=== PATIENT | female | born 1955 | race Caucasian/White ===

== ENCOUNTER 2022-02-09 12:00 | Emergency (ER) | payer OTHER ==
[~2022-02-09] VITALS: Ht 152.4 cm; Wt 65.9 kg
[2022-02-09] MEDS ORDERED: METO25 PO (12:12)
[2022-02-09] MEDS ORDERED: ASPI81TA87 PO (12:12)
[2022-02-09] MEDS ORDERED: ACETAMINOPHEN 500 MG TABLET PO ONE (13:15)
[2022-02-09 13:27] LABS: COVID AG,FIA SOURCE NASOPHARYNGEAL
[2022-02-09] MEDS ORDERED: BENZ-70 PO (13:41)
[2022-02-09] MEDS ORDERED: PROM118S5 PO (13:41)
[2022-02-09 14:10] VITALS: BP 138/88
[2022-02-09 14:19] LABS: INFLUENZA TYPE A NEGATIVE FOR TYPE A (NEGATIVE); INFLUENZA TYPE B NEGATIVE FOR TYPE B (NEGATIVE)
== END 2022-02-09 14:58 | disposition home or self-care (01) ==
LOC: EMS 12:00
DX: B34.9 Viral infection, unspecified (principal); I10 Essential (primary) hypertension; Z79.899 Other long term (current) drug therapy; Z20.822 Contact with and (suspected) exposure to COVID-19
CPT/HCPCS: 87804; 99283

== ENCOUNTER 2022-10-16 16:42 | Emergency (ER) | payer OTHER ==
[~2022-10-16] VITALS: Ht 144.8 cm; Wt 60.0 kg
[~2022-10-16 16:42] MED LIST: ASPI81TA87 PO; BENZ-227 PO; METO25 PO; PROM118S5 PO
[2022-10-16 19:49] LABS: BASOPHILS % (AUTO) 0.8 % (0.0-2.0); EOSINOPHILS % (AUTO) 4.3 % (1.0-6.0); HEMATOCRIT 38.4 % (36-46); HEMOGLOBIN 12.4 g/dL (12.0-16.0); LYMPHOCYTES # (AUTO) 1.4 K/uL (1.0-4.8); LYMPHOCYTES % (AUTO) 21.1 % (22.0-44.0); MEAN CORPUSCULAR HEMOGLOBIN 28.5 pg (26.0-34.0); MEAN CORPUSCULAR HGB CONC 32.3 G/dL (31.0-37.0); MEAN CORPUSCULAR VOLUME 88 fL (80-100); MONOCYTES # (AUTO) 0.8 K/uL (0.1-1.0); MONOCYTES % (AUTO) 11.8 % (2.0-9.0); PLATELET COUNT (AUTO) 173 K/uL (150-450); RED BLOOD CELL COUNT(AUTO) 4.35 MIL/uL (4.00-5.20); RED CELL DISTRIBUTION WIDTH 16.6 % (11.5-14.5)
[2022-10-16 20:00] LABS: ANION GAP 7 mmol/L (8-16); CALCIUM, TOTAL 8.5 mg/dL (8.8-10.5); CARBON DIOXIDE 28 mmol/L (22-29); CHLORIDE 104 mmol/L (98-107); GLOMERULAR FILTR. RATE CALC > 60 mL/min (>60); GLUCOSE,RANDOM 91 mg/dL (70-110); POTASSIUM 3.8 mmol/L (3.5-5.1); SODIUM SERUM 139 mmol/L (136-145); UREA NITROGEN, BLOOD 13 mg/dL (7-18)
[2022-10-16 20:56] LABS: ERYTHROCYTE SEDIMENTATION RATE 16 MM/HR (0-20)
[2022-10-16 21:15] VITALS: BP 122/74
== END 2022-10-16 21:16 | disposition home or self-care (01) ==
LOC: EMS 16:47
DX: R51.9 Headache, unspecified (principal); I10 Essential (primary) hypertension; M31.6 Other giant cell arteritis; Z98.890 Other specified postprocedural states
CPT/HCPCS: 70450; 80048; 85025; 85651; 99284